=== PATIENT | male | born 1980 | race Caucasian/White ===

== ENCOUNTER → 2019-03-12 | Outpatient (CLI) | payer BC | END | disposition home or self-care (01) | LOC: U/S 10:56 | PROVIDERS: ATTEND Internal Medicine | DX: N50.812 Left testicular pain (principal); N50.811 Right testicular pain; N43.3 Hydrocele, unspecified; N45.1 Epididymitis | CPT/HCPCS: 76870 ==

== ENCOUNTER → 2019-03-27 | Outpatient (CLI) | payer BC ==
--- NOTE | 2019-03-27 12:34 | RADRPT ---
Stress Test Report Patient Name: SKY LADDPatient ID: [id number] : 1980 (38y 12m)Study Date: 03/27/2019 11:42:32 AM Gender: MAccession #: [id number] Tech: Ben Wall RDCS Location: EKG Ref.Physician: TAHIR CLEMENTE Height(Cm): BSA: Weight(Kg): Quality: AdequateAccount #: Procedures: Stress Echo Report: Treadmill stress echocardiogram. Indications: Chest Pain. Findings: Stress Data: Protocol - Konrad Protocol. Duration - 10.30 min. Resting HR: 60 BPM. Peak HR: 173. Predicted Maximal HR - 181. Percent predicted max HR achieved - 96 %. Resting BP: 128/76. Peak BP: 170/86. Rate-Pressure Product: 96240. METs achieved: 10.00. Images obtained seconds after termination of exercise. Resting Echo Findings: Normal left ventricular size and systolic function with normal wall thickness at rest. Resting ECG: Normal EKG. Nonspecific TW abnl in inferior leads. Exercise Stress LV Function: Normal hyperdynamic contractile response with no inducible ischemia. Exercise ECG: Normal post exercise ECG. Reason for Termination: Fatigue. Functional Capacity: Average exercise functional capacity. Blood Pressure Response: Normal blood pressure response. Arrhythmia: No exercise induced arrhythmias. Conclusions: Low risk stress test. No Echocardiographic evidence of ischemia. ECG evidence of ischemia. Fair functional capacity fore age with chest tightness noted prior to and during/after stress. Electronically Signed By: Tahir Clemente 2019-03-27 12:33:37 PDT
--- NOTE | 2019-03-27 12:52 | RADRPT ---
Echocardiogram Report Patient Name: SKY LADDPatient ID: [id number] : 1980 (38y 12m)Study Date: 03/27/2019 11:37:53 AM Gender: MAccession #: [id number] Tech: Ben Wall RDCS Location: EKG Ref.Physician: TAHIR CLEMENTE Height(Cm): BSA: Weight(Kg): Quality: AdequateOrder Physician: TAHIR CLEMENTE Account #: Procedures: Echocardiographic Report: Transthoracic echocardiogram with complete 2D, M-Mode, and doppler examination. Indications: Chest Pain. Measurements: 2D/M Mode Doppler Measurement Value Normal Range Measurement Value Normal Range LVIDd 2D 5.6 [ 4.2 - 5.8 ] cm AV Peak Meño 1.4 [ 100.0 - 170.0 ] cm/sec LVIDs 2D 3.6 [ 2.5 - 4.0 ] cm AV Peak PG 7.0 [ 2.0 - 9.0 ] mmHg LVPWd 2D 0.9 [ 0.6 - 1.0 ] cm LVOT Peak Meño 1.1 [ 70.0 - 110.0 ] cm/sec IVSd 2D 0.9 [ 0.6 - 1.0 ] cm LVOT Peak PG 5.0 [ 2.0 - 6.0 ] mmHg AoR Diam 2D 2.9 [ 2.6 - 3.4 ] cm MV E Peak Meño 0.8 [ 60.0 - 130.0 ] cm/sec EDV 2D 151.0 [ 62.0 - 150.0 ] ml MV A Peak Meño 0.6 [ 100.0 - 120.0 ] cm/sec ESV 2D 55.5 [ 21.0 - 61.0 ] ml MV E/A 1.3 [ 0.8 - 1.5 ] ratio EF 2D 63.2 [ 52.0 - 72.0 ] percent MV Decel Time 183 [ 104 - 258 ] msec LA Dimen 2D 3.9 [ 3.0 - 4.0 ] cm Lat E` Meño 0.2 [ 10.0 - 15.0 ] cm/sec Lateral E/E` 3.2 [ 1.0 - 2.0 ] ratio MV E/A 1.3 [ 0.8 - 1.5 ] ratio TR Peak Meño 1.8 [ 100.0 - 280.0 ] cm/sec TR Peak PG 12.0 mmHg RVSP 15.0 [ 10.0 - 36.0 ] mmHg RA Pressure 3.0 mmHg Findings: Left Ventricle: Normal left ventricular systolic function. Normal left ventricular cavity size. Normal left ventricular wall thickness. Ejection fraction is visually estimated at 65 %. Tissue Doppler/Mitral Doppler indices are within normal limits. Right Ventricle: Normal right ventricular size. Normal right ventricular systolic function. Left Atrium: The left atrium is normal in size. Right Atrium: The right atrium is normal in size. Mitral Valve: Normal appearance and function of the mitral valve with trace physiologic regurgitation. Aortic Valve: Normal appearance of the aortic valve. No significant aortic stenosis or insufficiency. Tricuspid Valve: Normal appearance and function of the tricuspid valve with trace physiologic regurgitation. Normal right ventricular systolic pressure. The estimated Peak RVSP is 15 mmHg. Pulmonic Valve: Normal pulmonic valve appearance. Pericardium: Normal pericardium with no significant pericardial effusion. Aorta: Normal aortic root. IVC: Normal size and normal respiratory collapse consistent with normal right atrial pressure. Conclusions: Normal 2D/Doppler-echocardiographic study with normal left ventricular function and no significant valvular abnormalities. No Vegetation, masses, or thrombi seen. Electronically Signed By: Tahir Clemente 2019-03-27 12:51:22 PDT
== END | disposition home or self-care (01) ==
LOC: EKG 11:16
PROVIDERS: ATTEND Internal Medicine Interventional Cardiology
DX: R07.9 Chest pain, unspecified (principal); R06.02 Shortness of breath; R00.2 Palpitations
CPT/HCPCS: 93306; 93350

== ENCOUNTER → 2019-05-24 | Outpatient (CLI) | payer BC | END | disposition home or self-care (01) | LOC: LAB 11:57 | PROVIDERS: ATTEND Internal Medicine | DX: R51 Headache (principal); R42 Dizziness and giddiness; G47.00 Insomnia, unspecified | CPT/HCPCS: 80053; 80061; 84439; 84443; 85025; 85651 ==